=== PATIENT | female | born 1950 | race Caucasian/White ===

== ENCOUNTER → 2017-05-27 | Outpatient (CLI) | payer MEDICARE, BC ==
[~2017-05-27] MED LIST: ATORVASTATIN; HORMONE REPLACEMENT; NORCO 325 MG-51 TAB PO; [UNRECOGNIZED DRUG - OTHER]
== END ==
LOC: MC.RAD 12:56
DX: Z12.31 Encounter for screening mammogram for malignant neoplasm of breast (principal)

== ENCOUNTER 2018-01-13 13:15 | Outpatient (RCR) | payer MEDICARE, BC | END 2018-01-19 | disposition home or self-care (01) | LOC: WSPT | DX: G14 Postpolio syndrome (principal); M54.9 Dorsalgia, unspecified | CPT/HCPCS: G0283-GP; G8978-GP; G8979-GP; G8980-GP ==

== ENCOUNTER → 2018-07-19 | Outpatient (CLI) | payer MEDICARE, BC | LOC: MC.RAD 10:20 | DX: Z12.31 Encounter for screening mammogram for malignant neoplasm of breast (principal) ==

== ENCOUNTER → 2018-07-22 | Outpatient (CLI) | payer MEDICARE, BC | LOC: COL.VAS 08:00 | DX: I07.1 Rheumatic tricuspid insufficiency (principal) ==

== ENCOUNTER 2018-08-01 06:44 | Day surgery (SDC) | payer MEDICARE, BC ==
[~2018-08-01] VITALS: Ht 158.8 cm; Wt 66.4 kg
[2018-08-01] VITALS (13 sets, daily range): BP systolic 105–131; BP diastolic 10–85; PULSE 61–103; TEMP 97.7
[2018-08-01 07:24] LABS: HEMATOCRIT 44.1 % (37.0-47.0); HEMOGLOBIN 14.2 g/dl (12.5-16.0); MEAN CELL VOLUME 93 fl (80.0-100.0); MEAN CORPUSCULAR HEMOGLOBIN 30 pg (27.0-31.0); MEAN CORPUSCULAR HGB CONC 32 g/dl (33.0-37.0); MEAN PLATELET VOLUME 10.1 fl (7.4-10.4); PLATELET COUNT 264 K/mm3 (130-400); RED BLOOD COUNT 4.73 M/mm3 (4.10-5.30); REDCELL DISTRIBUTION WIDTH-CV 13.2 % (11.5-14.5)
[2018-08-01 07:34] LABS: INR 1.1 (0.8-3.0); PROTHROMBIN TIME 12.9 SECONDS (9.7-12.8)
[2018-08-01 07:37] LABS: CALCIUM 9.6 mg/dL (8.4-10.2); CREATININE, serum 0.81 mg/dL (0.52-1.25); POTASSIUM 3.6 mmol/L (3.4-5.0)
[2018-08-01] MEDS ORDERED: DITROPAN XL10 MG PO (07:40)
[2018-08-01] MEDS ORDERED: AMBIEN 5MG TABLE5 MG PO (07:40)
[2018-08-01] MEDS ORDERED: FLORAJEN A20 Billion PO (07:41)
[2018-08-01] MEDS ORDERED: ADVIL200 MG PO (07:42)
[2018-08-01] MEDS ORDERED: ALDACTONE 25MG25 M1 PO (10:21)
== END 2018-08-01 15:50 | disposition home or self-care (01) ==
LOC: COL.CAR 06:44
PROVIDERS: Internal Medicine Cardiovascular Disease
DX: I36.1 Nonrheumatic tricuspid (valve) insufficiency (principal); I42.0 Dilated cardiomyopathy; I10 Essential (primary) hypertension; Z79.899 Other long term (current) drug therapy; Z87.891 Personal history of nicotine dependence; R16.0 Hepatomegaly, not elsewhere classified; I20.9 Angina pectoris, unspecified; G89.29 Other chronic pain; M54.5 Low back pain; Z86.12 Personal history of poliomyelitis
CPT/HCPCS: G9654; J1644; J2704; Q9967

== ENCOUNTER → 2018-08-11 | Outpatient (CLI) | payer MEDICARE, BC ==
[~2018-08-11] MED LIST changes: +ADVIL200 MG PO; +ALDACTONE 25MG25 M1 PO; +AMBIEN 5MG TABLE5 MG PO; +DITROPAN XL10 MG PO; +FLORAJEN A20 Billion PO
[2018-08-11 13:35] LABS: BASO # 0.1 (0.0-0.2); BASO % 1.1 % (0.0-2.0); EOS # 0.2 (0.0-0.7); EOS % 2.7 % (0-4.0); GRAN # 4.8 (1.4-6.5); GRAN % 68.1 % (42.2-75.2); HEMATOCRIT 41.7 % (37.0-47.0); HEMOGLOBIN 13.3 g/dl (12.5-16.0); LYMPH # 1.4 (1.2-3.4); LYMPH % 19.7 % (20.0-51.0); MEAN CELL VOLUME 92 fl (80.0-100.0); MEAN CORPUSCULAR HEMOGLOBIN 29 pg (27.0-31.0); MEAN CORPUSCULAR HGB CONC 32 g/dl (33.0-37.0); MEAN PLATELET VOLUME 9.6 fl (7.4-10.4); MONO # 0.6 (0.1-0.6); MONO % 8.1 % (1.7-9.3); PLATELET COUNT 297 K/mm3 (130-400); RED BLOOD COUNT 4.52 M/mm3 (4.10-5.30); REDCELL DISTRIBUTION WIDTH-CV 13.2 % (11.5-14.5)
[2018-08-11 13:46] LABS: ALBUMIN 4.1 gm/dL (3.5-5.0); BILIRUBIN,TOTAL 1.3 mg/dL (0.0-1.0); CALCIUM 9.5 mg/dL (8.4-10.2); CREATININE, serum 0.85 mg/dL (0.52-1.25); TOTAL PROTEIN 7.2 gm/dL (6.4-8.2)
== END ==
LOC: COL.LAB 13:05
PROVIDERS: Internal Medicine
DX: R19.5 Other fecal abnormalities (principal)

== ENCOUNTER → 2018-08-31 | Outpatient (CLI) | payer MEDICARE, BC | LOC: COL.RAD 10:07 | DX: M54.9 Dorsalgia, unspecified (principal); R19.7 Diarrhea, unspecified; R16.0 Hepatomegaly, not elsewhere classified ==

== ENCOUNTER → 2018-09-15 | Outpatient (CLI) | payer MEDICARE, BC ==
[~2018-09-15] MED LIST changes: +COLESTID 1GM1 G PO
== END ==
LOC: COL.RAD 12:55
DX: K76.9 Liver disease, unspecified (principal)

== ENCOUNTER → 2018-09-16 | Outpatient (CLI) | payer MEDICARE, BC ==
[2018-09-16] VITALS (14 sets, daily range): BP systolic 98–156; BP diastolic 50–87; PULSE 69–90
[~2018-09-16] VITALS: Ht 158.8 cm; Wt 55.5 kg
[2018-09-16 08:52] LABS: INR 1.2 (0.8-3.0); PROTHROMBIN TIME 13.4 SECONDS (9.7-12.8)
--- NOTE | 2018-09-16 09:10 | NUR ---
PT AMBULATED TO U/S AND LAIDED ON THE TABLE. MONITORING EQUIPMENT PLACED ON PT. PT WAS COMFORTED.
--- NOTE | 2018-09-16 09:15 | NUR ---
PT LAYING COOMFORTABLEY ON TABLE. DR GO PRESENT. TIMEOUT COMPLETED. PT VERY NERVOUS. DR GO LEAVES TO LOOK AT CT AND MRI IMAGES
--- NOTE | 2018-09-16 09:20 | NUR ---
PT TOLERATING WELL
--- NOTE | 2018-09-16 09:25 | NUR ---
PT WAS GIVEN 0.5 MG VERSED AND FENTANYAL 25 MCG FOR ANXIETY. PT DOING WELL.
--- NOTE | 2018-09-16 09:30 | NUR ---
PT DOING WELL BX TAKEN AND PLACED IN FORMALIN.
--- NOTE | 2018-09-16 09:35 | NUR ---
PT FEELS BETTER. SHE IS MORE RELAXED. PROCEDURE COMPLETED. MONITORING EQUIPMENT REMOVED FROM PT. PT CLEANED AND ASSISTED TO WHEELCHAIR.
--- NOTE | 2018-09-16 10:49 | NUR ---
DR GO WAS NOTIFIED OF BP. SHAHID BP IS 80/50 RIGHT ARM AND 100/50 LEFT ARM. PT IS HAVING FUN WITH HER FAMILY.
--- NOTE | 2018-09-16 10:55 | NUR ---
DR GO CAME TO VISIT WITH PT. PT DENIES PAIN, ISNT SOA, TACICARDIC OR DIAPHORIETIC. WILL CONTINUE TO MONITOR CLOSELY.
--- NOTE | 2018-09-16 12:09 | NUR ---
PT TAKEN TO POV IN WHEELCHAIR. PT HAS NO QUESTIONS OR CONCERNS.
== END ==
LOC: COL.RAD 08:11
PROVIDERS: Internal Medicine
DX: K76.89 Other specified diseases of liver (principal)

== ENCOUNTER 2018-09-27 11:57 | Emergency (ER) | payer MEDICARE, BC ==
[~2018-09-27] VITALS: Ht 157.5 cm; Wt 63.6 kg
[2018-09-27 12:15] VITALS: TEMP 99.6
[2018-09-27 15:21] LABS: HEMATOCRIT 39.6 % (37.0-47.0); HEMOGLOBIN 12.8 g/dl (12.5-16.0); MEAN CELL VOLUME 89 fl (80.0-100.0); MEAN CORPUSCULAR HEMOGLOBIN 29 pg (27.0-31.0); MEAN CORPUSCULAR HGB CONC 32 g/dl (33.0-37.0); MEAN PLATELET VOLUME 9.5 fl (7.4-10.4); PLATELET COUNT 332 K/mm3 (130-400); RED BLOOD COUNT 4.47 M/mm3 (4.10-5.30); REDCELL DISTRIBUTION WIDTH-CV 13.9 % (11.5-14.5)
[2018-09-27 15:34] LABS: BAND 1 % (0-10); EOSINOPHIL 2 % (0-4); NEUTROPHILS 73 % (42.0-75.2); PLATELET ESTIMATE NORMAL (NORMAL)
[2018-09-27 15:35] LABS: LYMPHOCYTE 11 % (20.0-51.0)
[2018-09-27 15:40] LABS: ALBUMIN 3.6 gm/dL (3.5-5.0); BILIRUBIN,TOTAL 1.7 mg/dL (0.0-1.0); C-REACTIVE PROTEIN 8.6 mg/dL (0.0-0.9); CALCIUM 8.6 mg/dL (8.4-10.2); CREATININE, serum 0.61 mg/dL (0.52-1.25); TOTAL PROTEIN 6.7 gm/dL (6.4-8.2)
[2018-09-27] MEDS ORDERED: ZOFRAN ODT4 MG PO (18:45)
[2018-09-27] MEDS ORDERED: LEVAQUIN 750MG750 M1 PO (18:45)
[2018-09-27 19:00] VITALS: BP 102/68; PULSE 91
== END 2018-09-27 19:01 | disposition home or self-care (01) ==
LOC: COL.ER 11:57
PROVIDERS: Emergency Medicine
DX: K81.9 Cholecystitis, unspecified (principal); R16.0 Hepatomegaly, not elsewhere classified; Z85.05 Personal history of malignant neoplasm of liver
CPT/HCPCS: J2405; J7030; Q9967

== ENCOUNTER 2019-05-12 13:23 | Outpatient (RCR) | payer MEDICARE, BC ==
[~2019-05-12 13:23] MED LIST changes: +LEVAQUIN 750MG750 M1 PO; +ZOFRAN ODT4 MG PO
== END 2019-07-23 | disposition home or self-care (01) ==
LOC: COL.CR
DX: Z48.812 Encounter for surgical aftercare following surgery on the circulatory system (principal); Z95.2 Presence of prosthetic heart valve; I07.1 Rheumatic tricuspid insufficiency; I37.1 Nonrheumatic pulmonary valve insufficiency

== ENCOUNTER → 2019-08-21 | Outpatient (CLI) | payer MEDICARE, BC | LOC: MC.RAD 09:52 | DX: Z12.31 Encounter for screening mammogram for malignant neoplasm of breast (principal) ==

== ENCOUNTER → 2019-12-22 | Outpatient (CLI) | payer MEDICARE, BC ==
[~2019-12-22] MED LIST changes: +ASPIRIN 81M81 MG/TA2 PO; +FERROUS GL325 MG/TAB; +K-DUR 10 MEQ T10 MEQ PO; +LASIX 40MG TABL40 MG PO; +RESTORIL 1515 MG/CAP PO; +XERMELO250 MG PO
== END ==
LOC: COL.RAD 09:21
DX: Z01.812 Encounter for preprocedural laboratory examination (principal); M50.321 Other cervical disc degeneration at C4-C5 level; R20.2 Paresthesia of skin; G62.9 Polyneuropathy, unspecified
CPT/HCPCS: A9585

== ENCOUNTER → 2020-01-01 | Outpatient (CLI) | payer MEDICARE, BC | LOC: COL.VAS 10:13 | DX: R20.9 Unspecified disturbances of skin sensation (principal); R47.81 Slurred speech ==

== ENCOUNTER → 2020-03-19 | Outpatient (CLI) | payer MEDICARE, BC | LOC: COL.VAS 12:56 | DX: I08.3 Combined rheumatic disorders of mitral, aortic and tricuspid valves (principal); Z95.2 Presence of prosthetic heart valve ==

== ENCOUNTER → 2020-09-03 | Outpatient (CLI) | payer MEDICARE, BC | LOC: MC.RAD 09:15 | DX: Z12.31 Encounter for screening mammogram for malignant neoplasm of breast (principal) ==

== ENCOUNTER 2021-04-01 09:47 | Observation (INO) | payer MEDICARE, BC ==
[~2021-04-01] VITALS: Ht 157.5 cm; Wt 65.0 kg
[2021-04-01 10:14] LABS: HEMATOCRIT 43.2 % (37.0-47.0); HEMOGLOBIN 14.3 g/dl (12.5-16.0); MEAN CELL VOLUME 100 fl (80.0-100.0); MEAN CORPUSCULAR HEMOGLOBIN 33 pg (27.0-31.0); MEAN CORPUSCULAR HGB CONC 33 g/dl (33.0-37.0); MEAN PLATELET VOLUME 9.6 fl (7.4-10.4); PLATELET COUNT 210 K/mm3 (130-400); RED BLOOD COUNT 4.32 M/mm3 (4.10-5.30); REDCELL DISTRIBUTION WIDTH-CV 13.1 % (11.5-14.5)
[2021-04-01] MEDS ORDERED: COUMADIN 1MG1 MG/TAB PO (10:16)
[2021-04-01] MEDS ORDERED: COUMADIN 77.5 MG/TAB PO (10:16)
[2021-04-01 10:21] LABS: BILIRUBIN,TOTAL 1.6 mg/dL (0.0-1.0); CALCIUM 8.8 mg/dL (8.4-10.2); CREATININE, serum 0.72 (0.52-1.25); POTASSIUM 3.9 mmol/L (3.4-5.0); TOTAL PROTEIN 7.5 gm/dL (6.4-8.2)
[2021-04-01 10:40] LABS: BAND 3 % (0-10); BASOPHIL 1 % (0-2); EOSINOPHIL 2 % (0-4)
[2021-04-01 10:41] LABS: LYMPHOCYTE 4 % (20.0-51.0); NEUTROPHILS 77 % (42.0-75.2); PLATELET ESTIMATE NORMAL (NORMAL)
[2021-04-01 11:11] LABS: PH 6 (5-8); SQUAMOUS EPITHELIAL 0-2 /hpf; URINE APPEARANCE Clear; URINE BACTERIA None Seen /hpf; URINE BILIRUBIN Negative (NEGATIVE); URINE BLOOD 2+ (NEGATIVE); URINE COLOR Yellow; URINE GLUCOSE Negative (NEGATIVE); URINE KETONE Negative (NEGATIVE); URINE LEUKOCYTE ESTERASE Negative (NEGATIVE); URINE NITRATE Negative (NEGATIVE); URINE PROTEIN(semi-quant) Negative (NEGATIVE); URINE RBC 0-2 /hpf; URINE UROBILINOGEN Negative (NEGATIVE); URINE WBC 0-2 /hpf
[2021-04-01 11:52] LABS: INR 2.5 (0.8-3.0); PROTHROMBIN TIME 27.8 SECONDS (9.7-12.8)
[2021-04-01] MEDS ORDERED: SANDOSTATIN LAR30 M1 MR (12:42)
[2021-04-01 13:15] LABS: COLLECTION METHOD CLEAN CATCH
[2021-04-01 15:53] VITALS: BP 122/55; PULSE 57
--- NOTE | 2021-04-01 20:16 | NUR ---
Patient is lying in bed, alert and orientedx 4, reports that she pramod no pain, nausea or vomiting. Assessment was done, and meds provided. Warm blanket provided for comfort. She asked for tamazepam to get it before sleeping at 2100. Contacted provided to add it to the med list. Zozin running. No further needs at this time. Call light within reach.
[2021-04-01 20:38] VITALS: BP 100/56; PULSE 70; TEMP 98.8
[2021-04-02] VITALS (7 sets, daily range): BP systolic 96–111; BP diastolic 42–58; PULSE 63–73; TEMP 98.1–98.9
--- NOTE | 2021-04-02 06:21 | NUR ---
Patient has had a good night. VSS. No fever was present. Patient asked for temazapan, one of her home meds, it was reviewed with hospitalist and provided before bedtime. No further needs at this time. Call light within reach. Shift report will be provided.
--- NOTE | 2021-04-02 07:00 | NUR ---
Report from ABE Montejo. Pt sitting up in bed, A&O x 4, denies needs except ice water at this time. Call light in reach.
[2021-04-02 07:16] LABS: HEMATOCRIT 38.8 % (37.0-47.0); HEMOGLOBIN 12.9 g/dl (12.5-16.0); MEAN CELL VOLUME 97 fl (80.0-100.0); MEAN CORPUSCULAR HEMOGLOBIN 32 pg (27.0-31.0); MEAN CORPUSCULAR HGB CONC 33 g/dl (33.0-37.0); MEAN PLATELET VOLUME 9.8 fl (7.4-10.4); PLATELET COUNT 194 K/mm3 (130-400); RED BLOOD COUNT 3.99 M/mm3 (4.10-5.30); REDCELL DISTRIBUTION WIDTH-CV 13.2 % (11.5-14.5)
[2021-04-02 07:22] LABS: INR 2.6 (0.8-3.0); PROTHROMBIN TIME 29.3 SECONDS (9.7-12.8)
[2021-04-02 07:27] LABS: CALCIUM 8.4 mg/dL (8.4-10.2); CREATININE, serum 0.82 (0.52-1.25)
[2021-04-02 07:37] LABS: BAND 8 % (0-10); BASOPHIL 1 % (0-2); EOSINOPHIL 1 % (0-4); LYMPHOCYTE 5 % (20.0-51.0); METAMYELOCYTE 1 % (0-0); NEUTROPHILS 78 % (42.0-75.2); PLATELET ESTIMATE NORMAL (NORMAL)
--- NOTE | 2021-04-02 09:00 | NUR ---
Assessment complete. Pt sitting up in chair, A&O x 4, denies pain at this time. Physical assessment unremarkable. Saline lock IV to left hand without visible signs of complications but pt c/o pain with flushing and there is a small amount of leaking from under the dressing. No further needs reported. Call light in reach.
--- NOTE | 2021-04-02 09:20 | NUR ---
SW met with the patient to discuss discharge plan. The patient lives in [place] with her , Jayden (ph#[phone]). She reports independence with ADLs and does not have any DME. The patient's PCP is Dr. Breezy Donis and she receives her medications from [facility]. She reports no difficulties obtaining her meds. The patient's DPOA-HC is in EMR and it designates her , daughter (Ifrah), or her son-in-law (Taco). The patient plans to return home with her upon discharge. No additional needs at this time. *Discharge plan: home with *
--- NOTE | 2021-04-02 10:21 | NUR ---
IV to left hand causing pain with flushing and slight leaking, site discontinued with tip intact. IV start attempt x 2 by this nurse to left and right forearms without success. Second nurse notified to attempt new site.
--- NOTE | 2021-04-02 13:35 | NUR ---
Initial visit; Patient thanked [employer] for looking in on her and offering encouragement and God's blessings.
--- NOTE | 2021-04-02 23:29 | NUR ---
Patient is up in the room. Alert and oriented x 3. VSS. Reports no pain, nausea, vomiting or dizziness. Has no fever at this time. Assessment and meds provided. No further needs at this time. Call light within reach.
[2021-04-03] VITALS (7 sets, daily range): BP systolic 98–123; BP diastolic 38–78; PULSE 58–66; TEMP 98.1–98.3
--- NOTE | 2021-04-03 06:34 | NUR ---
Patient hasb being stable along the night. No major needs reported. Scheduled meds provided. Call light within reach. Shift report will be given to next nurse.
[2021-04-03 06:49] LABS: BASO # 0.1 (0.0-0.2); BASO % 0.5 % (0.0-2.0); EOS # 0.3 (0.0-0.7); EOS % 2.1 % (0-4.0); GRAN # 11.2 (1.4-6.5); GRAN % 81.9 % (42.2-75.2); HEMATOCRIT 32.9 % (37.0-47.0); HEMOGLOBIN 12.2 g/dl (12.5-16.0); LYMPH # 0.6 (1.2-3.4); LYMPH % 4.7 % (20.0-51.0); MEAN CELL VOLUME 100 fl (80.0-100.0); MEAN CORPUSCULAR HEMOGLOBIN 37 pg (27.0-31.0); MEAN CORPUSCULAR HGB CONC 37 g/dl (33.0-37.0); MEAN PLATELET VOLUME 10.2 fl (7.4-10.4); MONO # 1.3 (0.1-0.6); MONO % 9.8 % (1.7-9.3); PLATELET COUNT 200 K/mm3 (130-400); RED BLOOD COUNT 3.29 M/mm3 (4.10-5.30); REDCELL DISTRIBUTION WIDTH-CV 13.6 % (11.5-14.5)
[2021-04-03 07:00] LABS: INR 2.7 (0.8-3.0)
--- NOTE | 2021-04-03 07:00 | NUR ---
Report with ABE Chris. Pt sitting up in chair, A&O x 3, denies pain or needs at this time. Call light in reach.
[2021-04-03 07:02] LABS: ALBUMIN 3.3 gm/dL (3.5-5.0); BILIRUBIN,TOTAL 1.7 mg/dL (0.0-1.0); CALCIUM 8.2 mg/dL (8.4-10.2); CREATININE, serum 0.77 (0.52-1.25); POTASSIUM 3.6 mmol/L (3.4-5.0); TOTAL PROTEIN 6.5 gm/dL (6.4-8.2)
--- NOTE | 2021-04-03 09:00 | NUR ---
Pt to [facility] rm 16 via for procedure.
--- NOTE | 2021-04-03 10:15 | NUR ---
Pt back to room following procedure via WC, awake and alert, denies pain. Ice water provided and pt swallowing without difficulty. VSS. Call light in reach.
[2021-04-03] MEDS ORDERED: AMOXICILLIN 8751 TAB PO (10:22)
--- NOTE | 2021-04-03 11:50 | NUR ---
IV discontinued from left wrist with tip intact. Discharge instructions reviewed with pt and pt's spouse regarding new medication and follow-up appointments. Questions invited and answered. Pt and verbalize understanding. Pt discharged home, escorted out of facility via WC accompanied OFFBEARER and pt's spouse.
== END 2021-04-03 11:55 | disposition home or self-care (01) ==
LOC: COL.ER 09:47 → MEDICAL 12:31
PROVIDERS: Nurse Practitioner Primary Care; Physician Assistant; ADMIT Student in an Organized Health Care Education/Training Program
DX: R50.9 Fever, unspecified (principal); D72.829 Elevated white blood cell count, unspecified; R74.8 Abnormal levels of other serum enzymes; C7B.8 Other secondary neuroendocrine tumors; C7A.019 Malignant carcinoid tumor of the small intestine, unspecified portion; I08.1 Rheumatic disorders of both mitral and tricuspid valves; I42.0 Dilated cardiomyopathy; Z20.822 Contact with and (suspected) exposure to COVID-19; Z95.2 Presence of prosthetic heart valve; Z79.899 Other long term (current) drug therapy; Z79.82 Long term (current) use of aspirin; Z87.891 Personal history of nicotine dependence; Z79.01 Long term (current) use of anticoagulants
CPT/HCPCS: 99239; G0378; J2543; J2704; J7120; Q9967

== ENCOUNTER → 2021-10-07 | Outpatient (CLI) | payer MEDICARE, BC ==
[~2021-10-07] MED LIST changes: +AMOXICILLIN 8751 TAB PO; +COUMADIN 1MG1 MG/TAB PO; +COUMADIN 77.5 MG/TAB PO; +SANDOSTATIN LAR30 M1 MR
== END ==
LOC: MC.RAD 09:19
DX: Z12.31 Encounter for screening mammogram for malignant neoplasm of breast (principal)

== ENCOUNTER 2022-10-30 12:53 | Emergency (ER) | payer MEDICARE, BC ==
[~2022-10-30] VITALS: Ht 160 cm; Wt 65.9 kg
[2022-10-30 12:59] VITALS: TEMP 97.6
[2022-10-30 14:13] LABS: BASO # 0.1 K/mm3 (0.0-0.2); BASO % 1.1 % (0.0-2.0); EOS # 0.5 K/mm3 (0.0-0.7); EOS % 6.4 % (0.0-4.0); GRAN # 5.3 K/mm3 (1.4-6.5); GRAN % 70.9 % (42.2-75.2); HEMOGLOBIN 13.1 g/dl (12.5-16.0); LYMPH % 13.9 % (20.0-51.0); MEAN CELL VOLUME 97 fl (80.0-100.0); MEAN CORPUSCULAR HEMOGLOBIN 35 pg (27-31); MEAN CORPUSCULAR HGB CONC 36 g/dl (33.0-37.0); MEAN PLATELET VOLUME 9.2 fl (7.4-10.4); MONO # 0.5 K/mm3 (0.1-0.6); MONO % 7.2 % (1.7-9.3); PLATELET COUNT 240 K/mm3 (130-400); RED BLOOD COUNT 3.71 M/mm3 (4.10-5.30); REDCELL DISTRIBUTION WIDTH-CV 13.5 % (11.5-14.5)
[2022-10-30 14:24] LABS: INR 2.7 (0.8-3.0); PROTHROMBIN TIME 31.5 SECONDS (9.7-12.8)
[2022-10-30 14:37] LABS: ALANINE AMINOTRANSFERASE 23 U/L (0-55); ALBUMIN 3.7 gm/dL (3.4-4.8); ALKALINE PHOSPHATASE 209 U/L (40-150); ANION GAP 13 mmol/L (7-16); AST,SGOT 32 U/L (5-34); BILIRUBIN,TOTAL 0.5 mg/dL (0.2-1.2); BLOOD UREA NITROGEN 17 mg/dL (10-20); CALCIUM 8.9 mg/dL (8.4-10.2); CARBON DIOXIDE 26 mmol/L (23-31); CHLORIDE 103 mmol/L (98-107); CREATININE, serum 0.86 mg/dL (0.57-1.11); GLUCOSE 94 mg/dL (70-99); POTASSIUM 3.8 mmol/L (3.5-4.5); SODIUM 142 mmol/L (136-145)
[2022-10-30 14:43] LABS: TROPONIN-I < 0.010 ng/mL (0.00-0.033)
[2022-10-30 15:24] VITALS: BP 107/56; PULSE 57
== END 2022-10-30 15:32 | disposition home or self-care (01) ==
LOC: COL.ER 12:53
PROVIDERS: Emergency Medicine
DX: R07.89 Other chest pain (principal); Z79.01 Long term (current) use of anticoagulants

== ENCOUNTER → 2022-11-13 | Outpatient (RCR) | payer MEDICARE, BC | END | disposition home or self-care (01) | LOC: COL.CR | DX: Z48.812 Encounter for surgical aftercare following surgery on the circulatory system (principal); Z95.2 Presence of prosthetic heart valve ==

== ENCOUNTER 2022-12-09 15:30 | Outpatient (RCR) | payer MEDICARE, BC | END 2022-12-13 | disposition home or self-care (01) | LOC: COL.CR | DX: Z48.812 Encounter for surgical aftercare following surgery on the circulatory system (principal); Z95.2 Presence of prosthetic heart valve ==

== ENCOUNTER 2023-01-06 15:25 | Outpatient (RCR) | payer MEDICARE, BC | END 2023-01-13 | disposition home or self-care (01) | LOC: COL.CR | DX: Z48.812 Encounter for surgical aftercare following surgery on the circulatory system (principal); Z95.2 Presence of prosthetic heart valve ==

== ENCOUNTER 2023-09-15 09:30 | Emergency (ER) | payer MEDICARE, BC ==
[~2023-09-15] VITALS: Ht 160 cm; Wt 65.9 kg
[2023-09-15 09:39] VITALS: TEMP 97.8
[2023-09-15 10:25] LABS: ALANINE AMINOTRANSFERASE 26 U/L (0-55); ALBUMIN 4.3 gm/dL (3.4-4.8); ALKALINE PHOSPHATASE 190 U/L (40-150); ANION GAP 14 mmol/L (7-16); AST,SGOT 32 U/L (5-34); BILIRUBIN,TOTAL 0.5 mg/dL (0.2-1.2); BLOOD UREA NITROGEN 20 mg/dL (10-20); CALCIUM 9.8 mg/dL (8.4-10.2); CARBON DIOXIDE 25 mmol/L (23-31); CHLORIDE 103 mmol/L (98-107); CREATININE, serum 0.85 mg/dL (0.57-1.11); GLUCOSE 102 mg/dL (70-99); POTASSIUM 3.2 mmol/L (3.5-4.5); SODIUM 142 mmol/L (136-145)
[2023-09-15 10:26] LABS: BASO # 0.1 K/mm3 (0.0-0.2); EOS # 0.4 K/mm3 (0.0-0.7); EOS % 5.1 % (0.0-4.0); GRAN # 4.9 K/mm3 (1.4-6.5); GRAN % 71.5 % (42.2-75.2); HEMATOCRIT 43.3 % (37.0-47.0); MEAN CELL VOLUME 97 fl (80.0-100.0); MEAN CORPUSCULAR HEMOGLOBIN 33 pg (27-31); MEAN CORPUSCULAR HGB CONC 34 g/dl (33.0-37.0); MEAN PLATELET VOLUME 10.3 fl (7.4-10.4); MONO # 0.6 K/mm3 (0.1-0.6); MONO % 8.1 % (1.7-9.3); PLATELET COUNT 175 K/mm3 (130-400); RED BLOOD COUNT 4.45 M/mm3 (4.10-5.30); REDCELL DISTRIBUTION WIDTH-CV 12.9 % (11.5-14.5)
[2023-09-15 10:29] LABS: HEMOGLOBIN 14.7 g/dl (12.5-16.0); INR 2.8 (0.8-3.0); PROTHROMBIN TIME 29.6 SECONDS (9.7-12.8)
[2023-09-15 10:30] LABS: COLLECTION METHOD CLEAN CATCH
[2023-09-15 10:34] LABS: D-DIMER < 200.00 ng/mLDDu (200-230)
[2023-09-15 10:40] LABS: TROPONIN-I < 0.010 ng/mL (0.00-0.033)
[2023-09-15 10:54] LABS: URINE APPEARANCE Clear (CLEAR/HAZY); URINE BLOOD TRACE-INTACT (NEGATIVE); URINE COLOR Yellow (YELLOW); URINE GLUCOSE Negative (NEGATIVE); URINE KETONE Negative (NEGATIVE); URINE NITRATE Negative (NEGATIVE); URINE PROTEIN(semi-quant) Negative (NEGATIVE); URINE UROBILINOGEN 0.2 E.U/dL (0.2-1.0)
[2023-09-15 10:55] LABS: SQUAMOUS EPITHELIAL 0-2 /hpf (0-10); URINE BACTERIA Rare /hpf (NONE SEEN)
[2023-09-15 11:53] VITALS: BP 113/62; PULSE 73
== END 2023-09-15 12:03 | disposition home or self-care (01) ==
LOC: COL.ER 09:30
PROVIDERS: Nurse Practitioner; Personal Emergency Response Attendant
DX: M25.511 Pain in right shoulder (principal); R07.89 Other chest pain; C7A.8 Other malignant neuroendocrine tumors; I11.0 Hypertensive heart disease with heart failure; I50.9 Heart failure, unspecified; Z95.2 Presence of prosthetic heart valve; Z79.899 Other long term (current) drug therapy; Z79.82 Long term (current) use of aspirin; Z87.891 Personal history of nicotine dependence; Z79.01 Long term (current) use of anticoagulants

== ENCOUNTER → 2024-01-06 | Outpatient (CLI) | payer MEDICARE, BC | LOC: MC.RAD 08:00 | DX: Z12.31 Encounter for screening mammogram for malignant neoplasm of breast (principal) ==